=== PATIENT | female | born 1995 | race Caucasian/White ===

== ENCOUNTER 2018-12-09 23:26 | Emergency (ER) | payer BC ==
[~2018-12-09] VITALS: Ht 152.4 cm; Wt 59.0 kg
[2018-12-09 23:30] VITALS: BP_SYST 131
--- NOTE | 2018-12-09 23:40 | NUR ---
Patient to ER bed 7 to gown for evaluation. Side rails up. Report given to CYNTHIA HALL.
--- NOTE | 2018-12-09 23:42 | NUR ---
Dr. Wall Bedside for pt eval
--- NOTE | 2018-12-10 | NUR ---
Pt BIB by mother C/O Flu-like symptoms for 1 week. Pt states feeling congested. Self medicated with tylenol and motrin with no relief. No other injuries and complaints noted or observed. VSS, No s/s of acute distress. Resting on gurney with rails up
[2018-12-10 00:50] VITALS: BP_SYST 120
--- NOTE | 2018-12-10 00:50 | NUR ---
Patient given written and verbal discharge instructions and verbalizes understanding. ER MD discussed with patient the results and treatment provided. Patient in stable condition. ID arm band removed. Rx of Promethazine with codeine given. Patient educated on pain management and to follow up with PMD. Pain Scale 0/10. Opportunity for questions provided and answered. Medication side effect fact sheet provided.
== END 2018-12-10 00:50 | disposition home or self-care (01) ==
LOC: SED 23:26
DX: J06.9 Acute upper respiratory infection, unspecified (principal); R11.0 Nausea; R50.9 Fever, unspecified
CPT/HCPCS: 36415; 86710; 99283